=== PATIENT | male | born 1975 | race Caucasian/White ===

== ENCOUNTER → 2016-06-20 | Outpatient (CLI) | payer SELFPAY ==
[2016-06-20 15:21] LABS: CHLORIDE,CL 109 mmol/L (98-110); SODIUM,NA 141 mmol/L (136-146)
== END | disposition home or self-care (01) ==
LOC: MW.CHIM 14:46
PROVIDERS: ATTEND Internal Medicine
DX: R73.03 Prediabetes (principal); N52.9 Male erectile dysfunction, unspecified; Z85.46 Personal history of malignant neoplasm of prostate
CPT/HCPCS: 36415; 80053; 80061; 83036; 84402; 84403; 85025

== ENCOUNTER 2024-01-27 12:00 | Emergency (ER) | payer SELFPAY ==
[2024-01-27 12:46] VITALS: BP 123/73; PULSE 60
[2024-01-27] MEDS: Diphtheria,Pertussis(Acell),Tetanus Vaccine 0.5 ML Syringe IM ONE (13:32)
[2024-01-27] MEDS: Acetaminophen/oxyCODONE 325-5 MG Tab PO ONE (13:33)
[2024-01-27] MEDS: Ondansetron 4 MG Tab.DIS PO ONE (13:33)
== END 2024-01-27 15:09 | disposition home or self-care (01) ==
LOC: MW.ED 12:00
DX: S91.341A Puncture wound with foreign body, right foot, initial encounter (principal); Z23 Encounter for immunization; Z88.1 Allergy status to other antibiotic agents; Z91.013 Allergy to seafood; Z79.899 Other long term (current) drug therapy; Z75.8 Other problems related to medical facilities and other health care; X58.XXXA Exposure to other specified factors, initial encounter
CPT/HCPCS: 73630; 90471; 90715; 99283; A9270